=== PATIENT | male | born 1975 | race African-American/Black ===

== ENCOUNTER 2018-12-09 10:02 | Inpatient (IN) | payer OTHER ==
[2018-12-09 11:21] VITALS: BMI 25.1
--- NOTE | 2018-12-09 12:18 | HP ---
COWS - Scale Resting Pulse: 0= [place] 80 or Below Sweatin= Chills/Flushing Restless Observation: 1= Difficult to Sit Still Pupil Size: 0= Normal to Room Light Bone or Joint Aches: 1= Mild Discomfort Runny Nose/ Eye Tearin= Runny Nose/Eyes GI Upset > 30mins: 2= Nausea/Diarrhea Tremor Observation: 2= Slight Tremor Visible Yawning Observation: 2= >3x During Session Anxiety or Irritability: 1=Feels Anxious/Irritable Goose Flesh Skin: 0=Smooth Skin COWS Score: 12 CIWA Score - Admission Criteria [facility]ASAS Guidelines: Admission for Medically Managed Detox: Requires at least one of the followin. CIWA greater than 12 2. Seizures within the past 24 hours 3. Delirium tremens within the past 24 hours 4. Hallucinations within the past 24 hours 5. Acute intervention needed for co occurring medical disorder 6. Acute intervention needed for co occurring psychiatric disorder 7. Severe withdrawal that cannot be handled at a lower level of care (continued vomiting, continued diarrhea, abnormal vital signs) requiring intravenous medication and/or fluids 8. Admission ROS [facility] Chief Complaint: "I am here because I want to detox from Heroin" Allergies/Adverse Reactions: Allergies Allergy/AdvReac Type Severity Reaction Status Date / Time No Known Allergies Allergy Verified 12/09/18 11:14 History of Present Illness: 43 year old male with a past medical history of polysubstance abuse presents for detox from heroin and cocaine. Reports he has not been on methadone or suboxone in the past. States that he does not know whether he wants to stay for rehab. Heroin Use: snorts 2 bags a day, last night was the last time he used heroin, never overdosed from heroin. Has been to detox before > 1 year ago, cannot remember where, started at age 25. Had a period of 4 years of remission, relapsed due to social and societal stressors. Never had seizure. 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 Loss EENT: reports: Throat Pain Respiratory: reports: No Symptoms reported Cardiac: reports: Edema, Lightheadedness GI: reports: Nausea : reports: No Symptoms Reported Musculoskeletal: reports: Back Pain, Joint Pain Integumentary: reports: No Symptoms Reported Neuro: reports: No Symptoms reported Endocrine: reports: No Symptoms Reported Hematology: reports: No Symptoms Reported Psychiatric: reports: Depressed Patient History - Smoking Cessation Smoking history: Current some day smoker Have you smoked in the past 12 months: Yes Initiated information on smoking cessation: Yes 'Breaking Loose' booklet given: 12/09/18 - Substances abused Heroin Substance route: Inhalation Frequency: Daily Amount used: 2 bags Age of first use: 38 Date of last use: 12/09/18 Cocaine Substance route: Smoking Frequency: Daily Amount used: 1 or 2 bags Age of first use: 25 Date of last use: 12/08/18 Admission Physical Exam [facility] - Vital Signs Vital Signs: Vital Signs - 24 hr 12/09/18 11:13 Temperature 97.9 F Pulse Rate 65 Respiratory 20 Rate Blood Pressure 140/78 - Physical General Appearance: Yes: No Apparent Distress, Nourished, Appropriately Dressed HEENTM: Yes: EOMI, Normocephalic Respiratory: Yes: Lungs Clear, Normal Breath Sounds, No Respiratory Distress Neck: Yes: No masses,lesions,Nodules Breast: Yes: Within Normal Limits Cardiology: Yes: Regular Rhythm, Regular Rate, Edema (b/l peripheral edema) Abdominal: Yes: Normal Bowel Sounds Back: Yes: Within Normal Limits Musculoskeletal: Yes: full range of Motion Extremities: Yes: Normal Capillary Refill, Normal Inspection, Normal Range of Motion Neurological: Yes: corporate planner II-XII NML intact, Fully Oriented, Alert, Motor Strength 5/5, Normal Mood/Affect - Diagnostic (1) Opioid dependence with withdrawal Current Visit: Yes Status: Acute (2) Cocaine dependence Current Visit: Yes Status: Acute (3) Nicotine dependence with current use Current Visit: Yes Status: Acute Cleared for Admission [facility] - Detox or Rehab [facility] Level of Care: Medically Managed Detox Regimen/Protocol: Methadone Breathalyzer - Breathalyzer Breathalyzer: 0 Urine Drug Screen - Test Device Lot number: [id number] Expiration date: 08/14/20 - Control Is test valid?: Yes - Results Drug screen NEGATIVE: No Urine drug screen results: THC-Marijuana, MOP-Opiates Inpatient Rehab Admission - Rehab Decision to Admit Inpatient rehab admission?: No
[2018-12-09] MEDS ORDERED: METHOCARBAMOL 500 MG TABLET PO PRN (12:49)
[2018-12-09] MEDS ORDERED: cloNIDine HCL 0.1 MG TABLET PO PRN (12:49)
[2018-12-09] MEDS ORDERED: BISMUTH SUBSALICYLATE 262 MG/15 ML BTL PO PRN (12:49)
[2018-12-09] MEDS ORDERED: MAGNESIUM CITRATE 300 ML BOTTLE PO PRN (12:49)
[2018-12-09] MEDS ORDERED: MENTHOL/PHENOL 1 EACH UD MM PRN (12:49)
[2018-12-09] MEDS ORDERED: hydrOXYzine PAMOATE 25 MG CAPSULE (FP) PO PRN (12:49)
[2018-12-09] MEDS ORDERED: MAG HYDROX/AL HYDROX/SIMETH 30 ML UNIT-DOSE CUP PO PRN (12:49)
[2018-12-09] MEDS ORDERED: ACETAMINOPHEN 325 MG TABLET (FP) PO PRN ×2 (12:49)
[2018-12-09] MEDS ORDERED: MAGNESIUM HYDROX 2400MG/30ML ORAL SUSPENSION 30 ML CUP PO PRN (12:49)
[2018-12-09] MEDS ORDERED: IBUPROFEN 400 MG TABLET (FP) PO PRN (12:49)
[2018-12-09] MEDS ORDERED: diazePAM 5 MG TABLET PO PRN (12:51)
--- NOTE | 2018-12-09 13:11 | PN ---
Teaching Attending Note Name of Resident: Jaylan Abdi ATTENDING PHYSICIAN STATEMENT I saw and evaluated the patient. I reviewed the resident's note and discussed the case with the resident. I agree with the resident's findings and plan as documented. SUBJECTIVE: this 43 years old male with heroin and cocaine dependence,seeking detox, withdrawal symptom first admission to [facility] facility OBJECTIVE: withdrawal sisns and symptom ASSESSMENT AND PLAN: patient need inpatient detox from heroin and cocaine,medically managed detox, methadone regimen
[2018-12-09] MEDS ORDERED: METHADONE HCL 10 MG TABLET (FOR DETOX USE ONLY) PO ONE (14:00)
--- NOTE | 2018-12-09 14:30 | EKG ---
Test Reason : Blood Pressure : / mmHG Vent. Rate : 043 BPM Atrial Rate : 043 BPM P-R Int : 188 ms QRS Dur : 082 ms QT Int : 484 ms P-R-T Axes : 073 -18 037 degrees QTc Int : 408 ms MARKED SINUS BRADYCARDIA ABNORMAL ECG NO PREVIOUS ECGS AVAILABLE Confirmed by MD Austen, Sohan ([id number]) on 12/09/2018 2:29:34 PM Referred By: Confirmed By:Sohan Boyce MD
[2018-12-09 17:07] LABS: HEMATOCRIT 40.1 % (35.4-49); HEMOGLOBIN 13.2 GM/dL (11.7-16.9); MCH 27.7 pg (25.7-33.7); MCHC 32.9 g/dl (32.0-35.9); MEAN CELL VOLUME 84.1 fl (80-96); MEAN PLT VOLUME 8.7 fl (7.5-11.1); PLATELET COUNT 263 K/MM3 (134-434); RBC 4.76 M/mm3 (4.00-5.60); RDW 14.7 % (11.9-15.9); WHITE BLOOD COUNT 6.6 K/mm3 (4.0-10.0)
[2018-12-09 17:25] LABS: ALBUMIN 3.6 g/dl (3.4-5.0); BILIRUBIN,TOTAL 0.3 mg/dL (0.2-1); BLOOD UREA NITROGEN 18.8 mg/dL (7-18); CALCIUM 8.8 mg/dL (8.5-10.1); CREATININE 1.2 mg/dL (0.55-1.3); POTASSIUM 4.6 mmol/L (3.5-5.1); TOT PROT 6.5 g/dl (6.4-8.2)
[2018-12-09] MEDS: THIAMINE HCL 100 MG TABLET (FP) PO SCH (22:37)
[2018-12-10] MEDS ORDERED: METHADONE HCL 10 MG TABLET (FOR DETOX USE ONLY) ONE (08:40)
[2018-12-10] MEDS ORDERED: METHADONE HCL 5 MG TABLET (FOR DETOX USE ONLY) ONE (08:40)
--- NOTE | 2018-12-10 09:38 | PN ---
[facility] COWS - Scale Resting Pulse: 0= [place] 80 or Below Sweatin= Chills/Flushing Restless Observation: 0= Sits Still Pupil Size: 1= Pupils >than Normal Bone or Joint Aches: 1= Mild Discomfort Runny Nose/ Eye Tearin= Nasal Congestion GI Upset > 30mins: 1= Stomach Cramp Tremor Observation of Outstretched Hands: 2= Slight Tremor Visible Yawning Observation: 1= 1-2x During Session Anxiety or Irritability: 2=Irritable/Anxious Goose Flesh Skin: 3=Piloerection COWS Score: 13 B[facility] Progress Note (SOAP) Subjective: feeling tired resting on bed limited conversation with staff patient may consider medication assisted treatment program and mixing picker tender narcan from pharmacy Objective: 12/10/18 09:38 Vital Signs Temperature 98.1 F 12/10/18 09:13 Pulse Rate 69 12/10/18 09:13 Respiratory Rate 20 12/10/18 09:13 Blood Pressure 125/80 12/10/18 09:13 O2 Sat by Pulse Oximetry (%) Vital Signs Laboratory Last Values WBC 6.6 K/mm3 (4.0-10.0) 12/09/18 13:30 RBC 4.76 M/mm3 (4.00-5.60) 12/09/18 13:30 Hgb 13.2 GM/dL (11.7-16.9) 12/09/18 13:30 Hct 40.1 % (35.4-49) 12/09/18 13:30 MCV 84.1 fl (80-96) 12/09/18 13:30 MCH 27.7 pg (25.7-33.7) 12/09/18 13:30 MCHC 32.9 g/dl (32.0-35.9) 12/09/18 13:30 RDW 14.7 % (11.9-15.9) 12/09/18 13:30 Plt Count 263 K/MM3 (134-434) 12/09/18 13:30 MPV 8.7 fl (7.5-11.1) 12/09/18 13:30 Sodium 139 mmol/L (136-145) 12/09/18 13:30 Potassium 4.6 mmol/L (3.5-5.1) 12/09/18 13:30 Chloride 105 mmol/L (98-107) 12/09/18 13:30 Carbon Dioxide 29 mmol/L (21-32) 12/09/18 13:30 Anion Gap 6 MMOL/L (8-16) L 12/09/18 13:30 BUN 18.8 mg/dL (7-18) H 12/09/18 13:30 Creatinine 1.2 mg/dL (0.55-1.3) 12/09/18 13:30 Est GFR (CKD-EPI)AfAm 84.13 12/09/18 13:30 Est GFR (CKD-EPI)NonAf 72.59 12/09/18 13:30 Random Glucose 82 mg/dL (74-106) 12/09/18 13:30 Calcium 8.8 mg/dL (8.5-10.1) 12/09/18 13:30 Total Bilirubin 0.3 mg/dL (0.2-1) 12/09/18 13:30 AST 11 U/L (15-37) L 12/09/18 13:30 ALT 20 U/L (13-61) 12/09/18 13:30 Alkaline Phosphatase 91 U/L (45-117) 12/09/18 13:30 Total Protein 6.5 g/dl (6.4-8.2) 12/09/18 13:30 Albumin 3.6 g/dl (3.4-5.0) 12/09/18 13:30 lab noted Assessment: 12/10/18 09:38 opiate withdrawal sx Plan: continue methadone detox regimen
[2018-12-10] MEDS ORDERED: METHADONE (DETOX) 20 MG, METHADONE (DETOX) 5 MG PO ONE (10:00)
[2018-12-10] MEDS: PRENATAL VITAMINS W/ FOLIC ACID TABLET (FP) PO SCH (10:18)
[2018-12-10] MEDS: MELATONIN 5 MG TABLETS PO PRN (22:09)
[2018-12-10] MEDS: THIAMINE HCL 100 MG TABLET (FP) PO SCH (22:09)
--- NOTE | 2018-12-11 09:38 | PN ---
[facility] COWS - Scale Resting Pulse: 0= [place] 80 or Below Sweatin= Chills/Flushing Restless Observation: 0= Sits Still Pupil Size: 1= Pupils >than Normal Bone or Joint Aches: 1= Mild Discomfort Runny Nose/ Eye Tearin= Nasal Congestion GI Upset > 30mins: 1= Stomach Cramp Tremor Observation of Outstretched Hands: 2= Slight Tremor Visible Yawning Observation: 1= 1-2x During Session Anxiety or Irritability: 2=Irritable/Anxious Goose Flesh Skin: 0=Smooth Skin COWS Score: 10 S Progress Note (SOAP) Subjective: ate breakfast discuss the benefits of medication assisted treatment program pickle solution maker narcan from pharmacy Objective: 12/11/18 09:38 Vital Signs Temperature 97.7 F 12/11/18 09:12 Pulse Rate 61 12/11/18 09:12 Respiratory Rate 18 12/11/18 09:12 Blood Pressure 127/71 12/11/18 09:12 O2 Sat by Pulse Oximetry (%) Laboratory Last Values WBC 6.6 K/mm3 (4.0-10.0) 12/09/18 13:30 RBC 4.76 M/mm3 (4.00-5.60) 12/09/18 13:30 Hgb 13.2 GM/dL (11.7-16.9) 12/09/18 13:30 Hct 40.1 % (35.4-49) 12/09/18 13:30 MCV 84.1 fl (80-96) 12/09/18 13:30 MCH 27.7 pg (25.7-33.7) 12/09/18 13:30 MCHC 32.9 g/dl (32.0-35.9) 12/09/18 13:30 RDW 14.7 % (11.9-15.9) 12/09/18 13:30 Plt Count 263 K/MM3 (134-434) 12/09/18 13:30 MPV 8.7 fl (7.5-11.1) 12/09/18 13:30 Sodium 139 mmol/L (136-145) 12/09/18 13:30 Potassium 4.6 mmol/L (3.5-5.1) 12/09/18 13:30 Chloride 105 mmol/L (98-107) 12/09/18 13:30 Carbon Dioxide 29 mmol/L (21-32) 12/09/18 13:30 Anion Gap 6 MMOL/L (8-16) L 12/09/18 13:30 BUN 18.8 mg/dL (7-18) H 12/09/18 13:30 Creatinine 1.2 mg/dL (0.55-1.3) 12/09/18 13:30 Est GFR (CKD-EPI)AfAm 84.13 12/09/18 13:30 Est GFR (CKD-EPI)NonAf 72.59 12/09/18 13:30 Random Glucose 82 mg/dL (74-106) 12/09/18 13:30 Calcium 8.8 mg/dL (8.5-10.1) 12/09/18 13:30 Total Bilirubin 0.3 mg/dL (0.2-1) 12/09/18 13:30 AST 11 U/L (15-37) L 12/09/18 13:30 ALT 20 U/L (13-61) 12/09/18 13:30 Alkaline Phosphatase 91 U/L (45-117) 12/09/18 13:30 Total Protein 6.5 g/dl (6.4-8.2) 12/09/18 13:30 Albumin 3.6 g/dl (3.4-5.0) 12/09/18 13:30 RPR Titer Nonreactive (NONREACTIVE) 12/09/18 13:30 lab noted Assessment: 12/11/18 09:38 opiate withdrawal sx Plan: continue methadone detox
[2018-12-11] MEDS ORDERED: METHADONE HCL 10 MG TABLET (FOR DETOX USE ONLY) PO ONE (10:00)
[2018-12-11] MEDS: PRENATAL VITAMINS W/ FOLIC ACID TABLET (FP) PO SCH (10:36)
[2018-12-11] MEDS: MELATONIN 5 MG TABLETS PO PRN (22:08)
[2018-12-11] MEDS: THIAMINE HCL 100 MG TABLET (FP) PO SCH (22:08)
[2018-12-12] MEDS ORDERED: METHADONE HCL 10 MG TABLET (FOR DETOX USE ONLY) ONE (08:59)
[2018-12-12] MEDS ORDERED: METHADONE HCL 5 MG TABLET (FOR DETOX USE ONLY) ONE (08:59)
[2018-12-12] MEDS ORDERED: METHADONE (DETOX) 10 MG, METHADONE (DETOX) 5 MG PO ONE (10:00)
[2018-12-12] MEDS: PRENATAL VITAMINS W/ FOLIC ACID TABLET (FP) PO SCH (10:07)
--- NOTE | 2018-12-12 13:52 | PN ---
[facility] COWS - Scale Resting Pulse: 0= [place] 80 or Below Sweatin= Chills/Flushing Restless Observation: 1= Difficult to Sit Still Pupil Size: 0= Normal to Room Light Bone or Joint Aches: 1= Mild Discomfort Runny Nose/ Eye Tearin= Nasal Congestion GI Upset > 30mins: 1= Stomach Cramp Tremor Observation of Outstretched Hands: 1= Tremor [place], Not Seen Yawning Observation: 1= 1-2x During Session Anxiety or Irritability: 2=Irritable/Anxious Goose Flesh Skin: 0=Smooth Skin COWS Score: 9 BHS Progress Note (SOAP) Subjective: c/o of feeling anxious, interrupted sleep, body aches Objective: 12/12/18 13:49 Vital Signs Temperature 97.9 F 12/12/18 13:15 Pulse Rate 68 12/12/18 13:15 Respiratory Rate 18 12/12/18 13:15 Blood Pressure 110/64 12/12/18 13:15 O2 Sat by Pulse Oximetry (%) Laboratory Last Values WBC 6.6 K/mm3 (4.0-10.0) 12/09/18 13:30 RBC 4.76 M/mm3 (4.00-5.60) 12/09/18 13:30 Hgb 13.2 GM/dL (11.7-16.9) 12/09/18 13:30 Hct 40.1 % (35.4-49) 12/09/18 13:30 MCV 84.1 fl (80-96) 12/09/18 13:30 MCH 27.7 pg (25.7-33.7) 12/09/18 13:30 MCHC 32.9 g/dl (32.0-35.9) 12/09/18 13:30 RDW 14.7 % (11.9-15.9) 12/09/18 13:30 Plt Count 263 K/MM3 (134-434) 12/09/18 13:30 MPV 8.7 fl (7.5-11.1) 12/09/18 13:30 Sodium 139 mmol/L (136-145) 12/09/18 13:30 Potassium 4.6 mmol/L (3.5-5.1) 12/09/18 13:30 Chloride 105 mmol/L (98-107) 12/09/18 13:30 Carbon Dioxide 29 mmol/L (21-32) 12/09/18 13:30 Anion Gap 6 MMOL/L (8-16) L 12/09/18 13:30 BUN 18.8 mg/dL (7-18) H 12/09/18 13:30 Creatinine 1.2 mg/dL (0.55-1.3) 12/09/18 13:30 Est GFR (CKD-EPI)AfAm 84.13 12/09/18 13:30 Est GFR (CKD-EPI)NonAf 72.59 12/09/18 13:30 Random Glucose 82 mg/dL (74-106) 12/09/18 13:30 Calcium 8.8 mg/dL (8.5-10.1) 12/09/18 13:30 Total Bilirubin 0.3 mg/dL (0.2-1) 12/09/18 13:30 AST 11 U/L (15-37) L 12/09/18 13:30 ALT 20 U/L (13-61) 12/09/18 13:30 Alkaline Phosphatase 91 U/L (45-117) 12/09/18 13:30 Total Protein 6.5 g/dl (6.4-8.2) 12/09/18 13:30 Albumin 3.6 g/dl (3.4-5.0) 12/09/18 13:30 RPR Titer Nonreactive (NONREACTIVE) 12/09/18 13:30 TB (QFT) Incubation (.) 12/09/18 13:30 TB Test (QFT) Nil 0.22 IU/mL (.) 12/09/18 13:30 TB Test (QFT) Mitogen >10.00 IU/mL (.) 12/09/18 13:30 TB Test (QFT) Antigen 0.18 IU/mL (.) 12/09/18 13:30 TB Test (QFT) Negative (Negative) 12/09/18 13:30 TB Positive Criteria (.) 12/09/18 13:30 Assessment: 12/12/18 13:50 AOx3 no acute distress no adventitious breath sound s full ROM no gait abnormality Plan: Patient educated on MAT, recommend rehabilitation. Patient reports interested in MAT w/ suboxone outpatient increase PO fluids continue detox Continue to monitor
[2018-12-12] MEDS: MELATONIN 5 MG TABLETS PO PRN (22:05)
[2018-12-12] MEDS: THIAMINE HCL 100 MG TABLET (FP) PO SCH (22:05)
[2018-12-13] MEDS ORDERED: METHADONE HCL 10 MG TABLET (FOR DETOX USE ONLY) PO ONE (10:00)
[2018-12-13] MEDS: PRENATAL VITAMINS W/ FOLIC ACID TABLET (FP) PO SCH (10:16)
--- NOTE | 2018-12-13 16:38 | PN ---
BHS COWS - Scale Resting Pulse: 0= [place] 80 or Below Sweatin= No chills or Flushing Restless Observation: 1= Difficult to Sit Still Pupil Size: 0= Normal to Room Light Bone or Joint Aches: 2= Severe Diffuse Aches Runny Nose/ Eye Tearin= None GI Upset > 30mins: 0= None Tremor Observation of Outstretched Hands: 0= None Yawning Observation: 1= 1-2x During Session Anxiety or Irritability: 2=Irritable/Anxious Goose Flesh Skin: 0=Smooth Skin COWS Score: 6 BHS Progress Note (SOAP) Subjective: Body Aches, Anxious. Objective: PATIENT A & O X 3, OBSERVED AMBULATING ON DETOX UNIT UNASSISTED. IN NO ACUTE DISTRESS. 12/13/18 16:36 Vital Signs Temperature 97.8 F 12/13/18 13:07 Pulse Rate 70 12/13/18 13:07 Respiratory Rate 16 12/13/18 13:07 Blood Pressure 116/65 12/13/18 13:07 O2 Sat by Pulse Oximetry (%) Laboratory Tests 12/09/18 12/09/18 12/09/18 13:30 13:30 13:30 WBC 6.6 RBC 4.76 Hgb 13.2 Hct 40.1 MCV 84.1 MCH 27.7 MCHC 32.9 RDW 14.7 Plt Count 263 MPV 8.7 Sodium 139 Potassium 4.6 Chloride 105 Carbon Dioxide 29 Anion Gap 6 L BUN 18.8 H Creatinine 1.2 Est GFR (CKD-EPI)AfAm 84.13 Est GFR (CKD-EPI)NonAf 72.59 Random Glucose 82 Calcium 8.8 Total Bilirubin 0.3 AST 11 L ALT 20 Alkaline Phosphatase 91 Total Protein 6.5 Albumin 3.6 RPR Titer Nonreactive TB (QFT) Incubation TB Test (QFT) Nil TB Test (QFT) Mitogen TB Test (QFT) Antigen TB Test (QFT) TB Positive Criteria 12/09/18 13:30 WBC RBC Hgb Hct MCV MCH MCHC RDW Plt Count MPV Sodium Potassium Chloride Carbon Dioxide Anion Gap BUN Creatinine Est GFR (CKD-EPI)AfAm Est GFR (CKD-EPI)NonAf Random Glucose Calcium Total Bilirubin AST ALT Alkaline Phosphatase Total Protein Albumin RPR Titer TB (QFT) Incubation TB Test (QFT) Nil 0.22 TB Test (QFT) Mitogen >10.00 TB Test (QFT) Antigen 0.18 TB Test (QFT) Negative TB Positive Criteria LABS NOTED. Assessment: 12/13/18 16:37 WITHDRAWAL SYMPTOMS. Plan: CONTINUE DETOX. INCREASE DAILY PO WATER INTAKE. PATIENT SCHEDULED FOR D/C FROM DETOX UNIT TOMORROW.
[2018-12-13] MEDS: MELATONIN 5 MG TABLETS PO PRN (21:56)
[2018-12-13] MEDS: THIAMINE HCL 100 MG TABLET (FP) PO SCH (21:56)
[2018-12-14] MEDS ORDERED: METHADONE HCL 5 MG TABLET (FOR DETOX USE ONLY) PO ONE (06:00)
[2018-12-14 09:34] VITALS: BP 116/70; PULSE 66; TEMP 98.1
--- NOTE | 2018-12-14 09:51 | DS ---
[facility] Detox Discharge Summary Admission Date: 12/09/18 Discharge Date: 12/14/18 - History Present History: Opioid Dependence Additional Comments: did well with methadone detox regimen alert oriented x 3 speech clear coherently ambulating steady gait - Physical Exam Results Vital Signs: Vital Signs Temperature 98.1 F 12/14/18 09:33 Pulse Rate 66 12/14/18 09:33 Respiratory Rate 18 12/14/18 09:33 Blood Pressure 116/70 12/14/18 09:33 O2 Sat by Pulse Oximetry (%) Pertinent Admission Physical Exam Findings: opiate withdrawal sx Laboratory Last Values WBC 6.6 K/mm3 (4.0-10.0) 12/09/18 13:30 RBC 4.76 M/mm3 (4.00-5.60) 12/09/18 13:30 Hgb 13.2 GM/dL (11.7-16.9) 12/09/18 13:30 Hct 40.1 % (35.4-49) 12/09/18 13:30 MCV 84.1 fl (80-96) 12/09/18 13:30 MCH 27.7 pg (25.7-33.7) 12/09/18 13:30 MCHC 32.9 g/dl (32.0-35.9) 12/09/18 13:30 RDW 14.7 % (11.9-15.9) 12/09/18 13:30 Plt Count 263 K/MM3 (134-434) 12/09/18 13:30 MPV 8.7 fl (7.5-11.1) 12/09/18 13:30 Sodium 139 mmol/L (136-145) 12/09/18 13:30 Potassium 4.6 mmol/L (3.5-5.1) 12/09/18 13:30 Chloride 105 mmol/L (98-107) 12/09/18 13:30 Carbon Dioxide 29 mmol/L (21-32) 12/09/18 13:30 Anion Gap 6 MMOL/L (8-16) L 12/09/18 13:30 BUN 18.8 mg/dL (7-18) H 12/09/18 13:30 Creatinine 1.2 mg/dL (0.55-1.3) 12/09/18 13:30 Est GFR (CKD-EPI)AfAm 84.13 12/09/18 13:30 Est GFR (CKD-EPI)NonAf 72.59 12/09/18 13:30 Random Glucose 82 mg/dL (74-106) 12/09/18 13:30 Calcium 8.8 mg/dL (8.5-10.1) 12/09/18 13:30 Total Bilirubin 0.3 mg/dL (0.2-1) 12/09/18 13:30 AST 11 U/L (15-37) L 12/09/18 13:30 ALT 20 U/L (13-61) 12/09/18 13:30 Alkaline Phosphatase 91 U/L (45-117) 12/09/18 13:30 Total Protein 6.5 g/dl (6.4-8.2) 12/09/18 13:30 Albumin 3.6 g/dl (3.4-5.0) 12/09/18 13:30 RPR Titer Nonreactive (NONREACTIVE) 12/09/18 13:30 TB (QFT) Incubation (.) 12/09/18 13:30 TB Test (QFT) Nil 0.22 IU/mL (.) 12/09/18 13:30 TB Test (QFT) Mitogen >10.00 IU/mL (.) 12/09/18 13:30 TB Test (QFT) Antigen 0.18 IU/mL (.) 12/09/18 13:30 TB Test (QFT) Negative (Negative) 12/09/18 13:30 TB Positive Criteria (.) 12/09/18 13:30 lab noted - Treatment Hospital Course: Detox Protocol Followed, Detoxed Safely, Responded well, Discharged Condition Good, Rehab Referral Accepted Patient has Accepted [facility] - Medication Discharge Medications: Ambulatory Orders Naloxone HCl [Narcan] 4 mg NS ASDIR PRN #1 spray 12/10/18 Naloxone HCl [Narcan] 4 mg NS ASDIR #1 kit 12/13/18 - Diagnosis (1) Nicotine dependence with current use Status: Acute (2) Opioid dependence with withdrawal Status: Acute - AMA Did Patient Leave Against Medical Advice: No COWS (PN) - Opiate Withdrawal Resting Pulse: 0= [place] 80 or Below Sweatin= Chills/Flushing Restless Observation: 0= Sits Still Pupil Size: 0= Normal to Room Light Bone or Joint Aches: 1= Mild Discomfort Runny Nose/ Eye Tearin= Nasal Congestion GI Upset > 30mins: 0= None Tremor Observation of Outstretched Hands: 0= None Yawning Observation: 0= None Anxiety or Irritability: 0= None Goose Flesh Skin: 0=Smooth Skin COWS Score: 3
== END 2018-12-14 09:43 | disposition home or self-care (01) | DRG 773 ==
LOC: YASAS 10:02 → Y3N 13:30
PROVIDERS: ADMIT Surgery; ATTEND Surgery
PROC: HZ2ZZZZ Detoxification Services for Substance Abuse Treatment (ICD-10-PCS; principal; 2018-12-09)
DX: F11.23 Opioid dependence with withdrawal (principal); F14.20 Cocaine dependence, uncomplicated; F17.210 Nicotine dependence, cigarettes, uncomplicated; R60.0 Localized edema; Z59.0 Homelessness
CPT/HCPCS: 36415; 80053; 85027; 86480; 86593; 93005; 93010